=== PATIENT | male | born 2000 | race Caucasian/White ===

== ENCOUNTER 2021-01-25 00:29 | Emergency (ER) | payer SELFPAY ==
[2021-01-25 01:03] VITALS: BP 132/89; PULSE 75; TEMP 98.4; BMI 28.6
[2021-01-25] MEDS ORDERED: AMOX TR/POT CLAV 875MG/125MG TABLETS (FP) PO ONE (01:25)
[2021-01-25] MEDS ORDERED: AMOX TR/POT CLAV 875MG/125MG TABLETS (FP) ONE (01:29)
== END 2021-01-25 01:32 | disposition home or self-care (01) ==
LOC: EDBD 00:29 → JER 00:29
DX: L60.0 Ingrowing nail (principal)
CPT/HCPCS: 99283-25